=== PATIENT | male | born 1940 | race Hispanic/Latino ===

== ENCOUNTER 2017-08-20 06:20 | Outpatient (CLI) | payer MEDICARE ==
--- NOTE | 2017-08-20 08:31 | Cat Scan Report ---
CT scan of head without IV contrast: History: Dizziness. Findings: Ventricles are normal in size and midline in location. No evidence of acute ischemia, hemorrhage or mass. No extra axial fluid collection. Normal brainstem and cerebellum. Normal sinuses and master cells. Impression: Mild volume loss. No acute intracranial abnormality
== END 2017-08-20 06:21 | disposition home or self-care (01) ==
LOC: CT 06:20
PROVIDERS: ATTEND Internal Medicine Cardiovascular Disease
DX: R42 Dizziness and giddiness (principal); R26.9 Unspecified abnormalities of gait and mobility
CPT/HCPCS: 70450